=== PATIENT | male | born 1970 | race Caucasian/White ===

== ENCOUNTER 2017-12-14 08:18 | Outpatient (CLI) | payer OTHER ==
--- NOTE | 2017-12-14 09:04 | XRay Report ---
ROUTINE CHEST, TWO VIEWS: HISTORY: Cough, smoker. The trachea, heart, mediastinal contour, lung schmidt and bony thorax are unremarkable. IMPRESSION: Unremarkable chest x-ray.
== END 2017-12-14 08:19 | disposition home or self-care (01) ==
LOC: SPVIMAG 08:18
PROVIDERS: ATTEND Internal Medicine Hematology & Oncology
DX: D72.825 Bandemia (principal); Z72.0 Tobacco use; Z87.891 Personal history of nicotine dependence
CPT/HCPCS: 71046